=== PATIENT | male | born 1950 | race Asian ===

== ENCOUNTER 2021-02-25 06:24 | Outpatient (CLI) | payer MEDICARE | END 2021-02-25 23:59 | disposition home or self-care (01) | LOC: LAB 06:24 | PROVIDERS: ATTEND Surgery | DX: Z01.812 Encounter for preprocedural laboratory examination (principal); Z20.822 Contact with and (suspected) exposure to COVID-19; K80.10 Calculus of gallbladder with chronic cholecystitis without obstruction ==

== ENCOUNTER 2021-02-27 08:07 | Observation (INO) | payer MEDICARE, BC ==
[~2021-02-27] VITALS: Ht 170.2 cm; Wt 73.0 kg
[2021-02-27] MEDS ORDERED: IBUPROFEN 800 MG TABLET PO ONE (08:08)
[2021-02-27] MEDS ORDERED: GABAPENTIN 300 MG CAPSULE PO ONE (08:08)
[2021-02-27] MEDS ORDERED: PANTOPRAZOLE SODIUM 40 MG VIAL IV ONE (08:08)
[2021-02-27 08:48] LABS: BASOPHILS % (AUTO) 0.6 % (0.0-2.0); EOSINOPHILS # (AUTO) 0.3 K/uL (0.0-0.7); EOSINOPHILS % (AUTO) 4.9 % (0.0-7.0); HEMATOCRIT 43.7 % (36.7-47.1); HEMOGLOBIN 14.8 g/dL (12.5-16.3); LYMPHOCYTES # (AUTO) 1.8 K/uL (20.0-40.0); LYMPHOCYTES % (AUTO) 31.8 % (20.5-51.5); MEAN CORPUSCULAR HEMOGLOBIN 29.2 uug (23.8-33.4); MEAN CORPUSCULAR HGB CONC 34 g/dL (32.5-36.3); MEAN CORPUSCULAR VOLUME 86.4 fL (73.0-96.2); MONOCYTES # (AUTO) 0.3 K/uL (2.0-10.0); MONOCYTES % (AUTO) 5.7 % (0.0-11.0); NEUTROPHILS # (AUTO) 3.3 K/uL (1.8-8.9); PLATELET COUNT (AUTO) 201 K/uL (152-348); RED BLOOD CELL COUNT(AUTO) 5.06 MIL/uL (4.06-5.63); WHITE BLOOD COUNT (AUTO) 5.8 K/uL (3.6-10.2)
[2021-02-27 08:50] LABS: *BILIRUBIN,URIN NEGATIVE (NEGATIVE); *BLOOD, URINE NEGATIVE (NEGATIVE); *CLARITY,URINE CLEAR (CLEAR); *COLOR,URINE YELLOW (YELLOW); *KETONES,URINE NEGATIVE (NEGATIVE); *UROBILINOGEN,URINE 0.2 E.U./dl (NORMAL); LEUKOCYTE ESTERASE ,URINE NEGATIVE (NEGATIVE); NITRITE, URINE NEGATIVE (NEGATIVE); PH,URINE 5.5 (5.0-8.0); UGLUCOSE 3+ (NEGATIVE)
[2021-02-27 08:54] LABS: CREATININE 0.8 mg/dL (0.6-1.3); POTASSIUM 4.3 mmol/L (3.5-5.1)
[2021-02-27 09:00] LABS: BILIRUBIN,TOTAL 0.4 mg/dL (0.2-1.0)
[2021-02-27] MEDS ORDERED: SUCCINYLCHOLINE CHLORIDE 200 MG/10 ML VIAL ONE (09:28)
[2021-02-27] MEDS ORDERED: ROCURONIUM BROMIDE 50 MG/5 ML VIAL ONE (09:28)
[2021-02-27] MEDS ORDERED: FENTANYL CITRATE 100 MCG/2 ML AMPUL ONE (09:28)
[2021-02-27] MEDS ORDERED: BACITRACIN ZINC OINT 15 GM TUBE ONE (09:51)
[2021-02-27] MEDS ORDERED: BUPIVACAINE/EPI PF 0.5% 10 ML VIAL ONE ×2 (09:52→10:40)
[2021-02-27] MEDS ORDERED: LIDOCAINE HCL 1% 20 ML VIAL ONE (09:52)
[2021-02-27] MEDS ORDERED: TRIAMCINOLONE ACETONIDE 50 MG/5 ML VIAL ONE (10:15)
[2021-02-27] MEDS ORDERED: TRIAMCINOLONE ACETONIDE 40 MG/1 ML VIAL ONE (10:15)
[2021-02-27] MEDS ORDERED: ICOS1CAP PO (12:52)
[2021-02-27] MEDS ORDERED: SITA1TBM4 PO (12:54)
[2021-02-27] MEDS ORDERED: ROSU40TA PO (12:54)
[2021-02-27] MEDS ORDERED: GLIM2TAB31 PO (12:55)
[2021-02-27] MEDS ORDERED: EZET10TA15 PO (12:55)
[2021-02-27] MEDS ORDERED: EMPA25TA PO (12:56)
[2021-02-27] MEDS ORDERED: CLOP75TA33 PO (12:57)
[2021-02-27] MEDS ORDERED: ASPI81TA31 PO (12:58)
--- NOTE | 2021-02-27 13:02 | NUR ---
Patient admitted to floor s/p laparoscopic cholecystectomy. Patient is alert, oriented x4 in good spirits and joking with and staff. Report given by Gibson DEWITT. Patient's belongings checked in the room. Patient noted with 4 2x2 dressings on the abdomen. Dressings are clean and dry and intact, no drainage or bleeding noted. Patient c/o of abdominal tenderness. On clear liquid diet tolerated. No nausea or vomiting reported. Noted with slight swelling on the left hand. Per report patient was given kenalog before procedure due to c/o pain. Fingers are moving and warm to touch. Informed [employer] Javan who saw the pt with order to dc iv fluids noted and carried out. Patient is kept comfortable. Call light within reach. Will continue to monitor.
[2021-02-27] MEDS ORDERED: HYDROMORPHONE 1 MG/1 ML DISP.SYRIN IV PRN (13:15)
[2021-02-27] MEDS ORDERED: ONDANSETRON 4 MG/2 ML VIAL IV PRN ×2 (13:15→16:30)
[2021-02-27] MEDS ORDERED: DEXTROSE 50% 50 ML DISP.SYRIN IV PRN (14:00)
[2021-02-27 14:10] VITALS: BP 147/71
[2021-02-27] MEDS: GABAPENTIN 300 MG CAPSULE PO SCH ×2 (14:17→21:29)
[2021-02-27] MEDS: IBUPROFEN 800 MG TABLET PO SCH ×2 (14:17→21:29)
[2021-02-27] MEDS: ACETAMINOPHEN 325 MG TABLET PO SCH ×2 (14:17→21:29)
[2021-02-27] MEDS: BLOOD SUGAR DIAGNOSTIC 1 EACH STRIP VI SCH ×2 (16:39→20:36)
[2021-02-27] MEDS ORDERED: SITAGLIPTIN PHOS PO SCH (17:00)
[2021-02-27] MEDS ORDERED: Medication Not On Formulary EA (Icosapent Ethyl (Vascepa) 1 GM) PO SCH (17:00)
[2021-02-27] MEDS ORDERED: [UNRECOGNIZED DRUG - OTHER] PO SCH (17:00)
[2021-02-27] MEDS ORDERED: METFORMIN HCL PO SCH (17:00)
[2021-02-27] MEDS: OMEGA-3 FATTY ACIDS/FISH OIL CAPSULE PO SCH (17:07)
--- NOTE | 2021-02-27 19:00 | NUR ---
Patient alert oriented, no sob no chest pain, noted, s/p lap coli, no nausea no vomiting noted, per am rn patient ambulate in the hallway tolerate well. cont to monitor.
--- NOTE | 2021-02-27 19:00 | NUR ---
PATIENT ALERT ORIENTED, WITH , NO COMPLAIN OF PAIN, CONT TO MONITOR.
--- NOTE | 2021-02-27 19:16 | NUR ---
Patient laying down resting. Alert and oriented x 4. Patient is post op laparoscopic cholecystectomy, 4 2x2 dressing noted to be intact and dry. Skin intact everywhere else. Patient stated pain in the abdomen throughout the shift. Scheduled motrin and ibuprofen given, patient stated pain relief with in an hour. Patient has swelling in left hand, able to move hand more at the end of the shift. He is on clear liquid diet. Began to ambulate to the restroom after 1800. Able to walk with stand by assist. Bed in low and locked position. Safety precautions in place. Call light within reach.
[2021-02-27 20:00] VITALS: BP 111/57
--- NOTE | 2021-02-27 21:15 | NUR ---
Patient ambulate in the hallway stand by assist by staff, tolerate well, no nausea no vomiting, patient been drinking Ensure tolerate well, cont to monitor.
--- NOTE | 2021-02-27 21:50 | NUR ---
DR. GUILLEN ORDERED THAT PATIENT CAN HAVE FOOD AND FLUID NOW, ORDER NOTED AND CARRIED OUT. PATIENT TOLERATE FOOD AND JUICE, NO VOMITING NOTED, PATIENT GIVEN AND INSTRUCTED HOW TO USE INCENTIVE SPIROMETER, ABLE TO FOLLOW TEACHING. NO COMPLAIN OF PAIN.
[2021-02-28 04:00] VITALS: BP 112/63
[2021-02-28] MEDS: IBUPROFEN 800 MG TABLET PO SCH (06:14)
[2021-02-28] MEDS: GABAPENTIN 300 MG CAPSULE PO SCH (06:14)
[2021-02-28] MEDS: ACETAMINOPHEN 325 MG TABLET PO SCH (06:14)
[2021-02-28] MEDS: BLOOD SUGAR DIAGNOSTIC 1 EACH STRIP VI SCH (06:30)
--- NOTE | 2021-02-28 06:42 | NUR ---
PATIENT SLEPT MOST OF THE NIGHT, PATIENT VOIDING, AND PASSING GAS, AMBULATE AROUND HIS ROOM, TOLERATE WELL, NO COMPLAIN OF PAIN, CONT TO MONITOR.
[2021-02-28] MEDS ORDERED: PANTOPRAZOLE SODIUM 40 MG TABLET.DR PO SCH (07:00)
--- NOTE | 2021-02-28 07:30 | NUR ---
received change of shift report. pt awake alert and oriented x4, tp on room air, no signs of distress noted no reports of pain at this time, pain medications given at 0615. pt has 4 surgical wounds on abdomen, right big toe nail removed. pt ambulatory, BRP, IV access on the right wrist 22g saline lock, patent and intact. bed in low and locked position, call light within reach, incentive spirometer at bedside, safety precautions in place. will continue with plan of care.
[2021-02-28 08:00] VITALS: BP 110/68
[2021-02-28 08:32] VITALS: BP 110/68
[2021-02-28] MEDS: OMEGA-3 FATTY ACIDS/FISH OIL CAPSULE PO SCH (08:54)
[2021-02-28] MEDS ORDERED: Medication Not On Formulary EA (Rosuvastatin Calcium (Crestor) 40 MG) PO SCH (09:00)
[2021-02-28] MEDS ORDERED: Medication Not On Formulary EA (Empagliflozin (Jardiance) 25 MG) PO SCH (09:00)
[2021-02-28] MEDS ORDERED: EZETIMIBE 10 MG TABLET PO SCH (09:00)
[2021-02-28] MEDS ORDERED: GLIMEPIRIDE 2 MG TABLET PO SCH (09:00)
[2021-02-28] MEDS ORDERED: KETOROLAC TROMETHAMINE 30 MG INJ IM ONE (10:49)
[2021-02-28] MEDS ORDERED: CEFAZOLIN 1 G VIAL IV ONE (10:49)
[2021-02-28] MEDS ORDERED: PROPOFOL 200 MG/20 ML BOTTLE IV ONE (10:49)
[2021-02-28] MEDS ORDERED: GLYCOPYRROLATE 0.2 MG/ML VIAL MC ONE (10:49)
[2021-02-28] MEDS ORDERED: NEOSTIGMINE METHYLSULFATE 10 MG/10 ML VIAL IV ONE (10:49)
--- NOTE | 2021-02-28 10:50 | NUR ---
pt discharged with all belongings, at bedside. pt is awake alert and oriented x4, cooperative, ambulatory, steady gait, no reports of pain, on room air, passing gas. BP 110/68, pulse 78, temp 97.5, O2 94%, resp rate 17. Picture of surgical wounds taken, dressing changed, clean dry and intact. pt left in private car with . pt forgot paperwork as bedside, called and left message. ID band and IV removed prior to discharge.
[2021-03-05] MEDS ORDERED: CLOPIDOGREL 75 MG TABLET PO SCH (09:00)
[2021-03-05] MEDS ORDERED: ASPIRIN 81 MG TAB.CHEW PO SCH (09:00)
== END 2021-02-28 10:50 | disposition home or self-care (01) ==
LOC: DS 08:07 → MEDSURG3 12:23
PROVIDERS: ADMIT Nurse Practitioner Acute Care; ATTEND Nurse Practitioner Acute Care
PROC: 0FT44ZZ Resection of Gallbladder, Percutaneous Endoscopic Approach (ICD-10-PCS; principal; 2021-02-27)
DX: K80.10 Calculus of gallbladder with chronic cholecystitis without obstruction (principal); M65.322 Trigger finger, left index finger; M65.332 Trigger finger, left middle finger; E11.9 Type 2 diabetes mellitus without complications; E78.00 Pure hypercholesterolemia, unspecified; E78.5 Hyperlipidemia, unspecified; I25.10 Atherosclerotic heart disease of native coronary artery without angina pectoris; Z80.0 Family history of malignant neoplasm of digestive organs; Z82.49 Family history of ischemic heart disease and other diseases of the circulatory system; Z83.3 Family history of diabetes mellitus; Z95.1 Presence of aortocoronary bypass graft
CPT/HCPCS: 20552; 36415; 47562; 80053; 81003; 82962 ×4; 85025; 85730; C9113; G0378 ×22; J0330; J0690; J1885; J3010; J3301; J3490 ×5; A4663; J7030